=== PATIENT | male | born 1945 | race Caucasian/White ===

== ENCOUNTER 2016-12-09 10:36 | Inpatient (IN) | payer OTHER ==
[~2016-12-09] VITALS: Ht 175.3 cm; Wt 107.5 kg
[2016-12-09 12:13] LABS: HEMATOCRIT 46.9 % (38.0-50.0); MCH 31.5 PG (29.0-34.0); MCHC 33.7 G/DL (30.0-36.0); MCV 93.6 FL (86-99); MEAN PLAT.VOLUME 11.8 uM^3 (9.0-12.4); PLATELET COUNT 213 K/uL (156-360); RBC DIS.WIDTH-CV 12.7 % (11.8-14.6); RBC DIS.WIDTH-SD 43.9 % (39-53); RED BLOOD COUNT 5.01 M/uL (4.00-5.50)
[2016-12-09 12:22] LABS: CHLORIDE 110 mEq/L (99-109); POTASSIUM 4.5 mEq/L (3.7-5.4); SODIUM 144 mEq/L (136-147)
[2016-12-09 12:23] LABS: GLUCOSE 96 mg/dL (70-99)
[2016-12-09 12:25] LABS: ANION GAP 10 MEQ/L (2-14)
[2016-12-09 12:27] LABS: GFR ESTIMATE (CALCULATED) > 59 mL/min/
[2016-12-09 12:28] LABS: UREA NITROGEN (BUN) 19 mg/dL (9-23)
[2016-12-09] MEDS ORDERED: ADVAIR 250/501 DISK IH (14:57)
[2016-12-09] MEDS ORDERED: FINASTERIDE5 MG PO (14:58)
[2016-12-09] MEDS ORDERED: FOSINOPRIL SODI40 MG PO (14:58)
[2016-12-09] MEDS ORDERED: DICLOFENAC SODI75 MG PO (15:01)
[2016-12-09] MEDS ORDERED: TRAMADOL HCL50 MG PO (15:01)
[2016-12-09] MEDS ORDERED: LO-DOSE ASPIRIN81 M2 PO (15:02)
[2016-12-09] MEDS ORDERED: DAILY VALUE1 EACH PO (15:03)
[2016-12-09] MEDS ORDERED: PROAIR HFA8.5 GM IH (15:03)
[2016-12-09 17:58] VITALS: BP 168/84
[2016-12-09 20:00] VITALS: BP 173/93
[2016-12-09 23:45] VITALS: BP 185/88
[2016-12-10 03:43] VITALS: BP 177/97
[2016-12-10 05:59] LABS: HDL CHOLESTEROL 35 MG/DL (Desirable>=40); LDL CHOLESTEROL 107 mg/dL (Desirable<100); NON-HDL CHOLESTEROL 123 mg/dL (Desirable<160); SAMPLE HEMOLYSIS CHECK 1; SAMPLE ICTERIC CHECK 0; SAMPLE LIPEMIA CHECK 0; TOTAL CHOLESTEROL 158 mg/dL (Desirable<200); TRIGLYCERIDES 78 MG/DL (Normal: <150)
[2016-12-10 06:49] LABS: Estimated Average Glucose 111 mg/dL (70-123); HEMOGLOBIN A1c (GLYCOHEMOGLOB) 5.5 % HGB (Below 5.7)
[2016-12-10 08:11] VITALS: BP 184/86
[2016-12-10 10:45] LABS: ADD MIUA? YES; BILIRUBIN NEGATIVE; BLOOD MODERATE; COLOR YELLOW ((YELLOW)); GLUCOSE (STRIP) NEGATIVE; KETONES NEGATIVE; LEUKOCYTES NEGATIVE; NITRITE NEGATIVE; PROTEIN (STRIP) NEGATIVE; SPECIFIC GRAVITY 1.012 (1.000-1.030); UROBILINOGEN 0.2 MG/DL (0.2-1.0)
[2016-12-10 10:47] LABS: BACTERIA NONE SEEN /HPF; EPITHELIAL CELLS NONE SEEN /HPF; MUCUS TRACE /LPF; RED BLOOD CELLS 20-30 /HPF (0-5); UCUL ADDED? NO; WHITE BLOOD CELLS 0-5 /HPF (0-5)
[2016-12-10 11:58] VITALS: BP 154/88
[2016-12-10 15:53] VITALS: BP 178/82
[2016-12-10 19:45] VITALS: BP 150/82; BP 185/93
[2016-12-11 00:16] VITALS: BP 148/80
[2016-12-11 03:54] VITALS: BP 142/74
[2016-12-11 07:52] VITALS: BP 130/78
[2016-12-11 11:24] VITALS: BP 160/80
[2016-12-11 15:50] VITALS: BP 150/80
[2016-12-11 18:50] LABS: HEMATOCRIT 46.4 % (38.0-50.0); MCV 94.5 FL (86-99)
[2016-12-11 20:30] LABS: ADD MIUA? NO; BILIRUBIN NEGATIVE; BLOOD NEGATIVE; COLOR YELLOW ((YELLOW)); GLUCOSE (STRIP) NEGATIVE; KETONES NEGATIVE; LEUKOCYTES NEGATIVE; NITRITE NEGATIVE; PROTEIN (STRIP) NEGATIVE; SPECIFIC GRAVITY 1.019 (1.000-1.030); UROBILINOGEN 0.2 MG/DL (0.2-1.0)
[2016-12-12 00:03] VITALS: BP 148/68
[2016-12-12 07:28] LABS: HEMATOCRIT 44.3 % (38.0-50.0); MCH 31.5 PG (29.0-34.0); MCHC 33.6 G/DL (30.0-36.0); MCV 93.7 FL (86-99); MEAN PLAT.VOLUME 11.8 uM^3 (9.0-12.4); PLATELET COUNT 223 K/uL (156-360); RBC DIS.WIDTH-CV 12.5 % (11.8-14.6); RBC DIS.WIDTH-SD 43.2 % (39-53); RED BLOOD COUNT 4.73 M/uL (4.00-5.50); WHITE BLOOD COUNT 7.9 K/uL (4.1-10.2)
[2016-12-12 07:50] VITALS: BP 132/78
[2016-12-12 07:51] LABS: ANION GAP 8 MEQ/L (2-14); CHLORIDE 107 MEQ/L (99-109); GFR ESTIMATE (CALCULATED) > 59 mL/min/; GLUCOSE 92 mg/dL (70-99); SAMPLE HEMOLYSIS CHECK 0; SAMPLE ICTERIC CHECK 0; SAMPLE LIPEMIA CHECK 0; SODIUM 141 MEQ/L (136-147); UREA NITROGEN (BUN) 18 mg/dL (9-23)
[2016-12-12 16:09] VITALS: BP 140/82
[2016-12-12 23:29] VITALS: BP 137/74
[2016-12-13 05:26] LABS: HEMATOCRIT 45.9 % (38.0-50.0); MCH 31.3 PG (29.0-34.0); MCHC 33.8 G/DL (30.0-36.0); MCV 92.7 FL (86-99); MEAN PLAT.VOLUME 11.7 uM^3 (9.0-12.4); PLATELET COUNT 209 K/uL (156-360); RBC DIS.WIDTH-CV 12.3 % (11.8-14.6); RBC DIS.WIDTH-SD 42.3 % (39-53); RED BLOOD COUNT 4.95 M/uL (4.00-5.50); WHITE BLOOD COUNT 8.3 K/uL (4.1-10.2)
[2016-12-13 08:05] VITALS: BP 140/82
[2016-12-13 15:52] VITALS: BP 124/78
[2016-12-13 18:31] LABS: INTERNAL CONTROL VALID? YES
[2016-12-14 00:08] VITALS: BP 136/71
[2016-12-14 06:45] LABS: HEMATOCRIT 46.3 % (38.0-50.0); MCH 31.6 PG (29.0-34.0); MCHC 33.5 G/DL (30.0-36.0); MCV 94.3 FL (86-99); PLATELET COUNT 221 K/uL (156-360); RBC DIS.WIDTH-CV 12.4 % (11.8-14.6); RBC DIS.WIDTH-SD 42.9 % (39-53); RED BLOOD COUNT 4.91 M/uL (4.00-5.50); WHITE BLOOD COUNT 9.1 K/uL (4.1-10.2)
[2016-12-14 08:05] VITALS: BP 150/82
[2016-12-14] MEDS ORDERED: PRAVASTATIN SOD40 MG PO (11:27)
[2016-12-14 14:13] VITALS: BP 145/90
[2016-12-14] MEDS ORDERED: LOVENOX40 MG/0.4 PO (15:46)
[2016-12-14] MEDS ORDERED: PEPCID20 MG PO (16:03)
[2016-12-14] MEDS ORDERED: TEARS NATURALE30 ML RIGHT EYE (16:06)
== END 2016-12-14 15:05 | DRG 65 ==
LOC: EME 10:36 → EDOF 13:58 → 5SOUTH 16:02 → EDOF 16:08 → 5SOUTH 17:42
PROVIDERS: Nurse Practitioner Adult Health; Physician Assistant Medical; Specialist
PROC: B246ZZ4 Ultrasonography of Right and Left Heart, Transesophageal (ICD-10-PCS; principal; 2016-12-14)
DX: I63.40 Cerebral infarction due to embolism of unspecified cerebral artery (principal); J44.9 Chronic obstructive pulmonary disease, unspecified; K92.1 Melena; G81.91 Hemiplegia, unspecified affecting right dominant side; E78.5 Hyperlipidemia, unspecified; E83.119 Hemochromatosis, unspecified; H10.9 Unspecified conjunctivitis; H81.09 Meniere's disease, unspecified ear; I10 Essential (primary) hypertension; I47.1 Supraventricular tachycardia; R04.0 Epistaxis; Z86.711 Personal history of pulmonary embolism; Z87.891 Personal history of nicotine dependence; R31.9 Hematuria, unspecified; R26.9 Unspecified abnormalities of gait and mobility; R27.0 Ataxia, unspecified; R20.2 Paresthesia of skin; H53.8 Other visual disturbances; R30.0 Dysuria; R47.81 Slurred speech; I65.29 Occlusion and stenosis of unspecified carotid artery; R91.8 Other nonspecific abnormal finding of lung field; Z86.73 Personal history of transient ischemic attack (TIA), and cerebral infarction without residual deficits; Z79.82 Long term (current) use of aspirin
CPT/HCPCS: 70450; 70551; 71020; 71260; 80048; 80061; 81003; 82272; 83036; 85014; 85018; 85027; 92507 GN; 92523 GN; 93005; 93306; 93312; 93880; 99281; 99285; J1650; S0028

== ENCOUNTER 2016-12-14 10:36 | Inpatient (IN) | payer OTHER ==
[~2016-12-14] VITALS: Ht 185.4 cm; Wt 107.5 kg
[~2016-12-14 10:36] MED LIST: ADVAIR 250/501 DISK IH; DAILY VALUE1 EACH PO; DICLOFENAC SODI75 MG PO; FINASTERIDE5 MG PO; FOSINOPRIL SODI40 MG PO; LO-DOSE ASPIRIN81 M2 PO; PROAIR HFA8.5 GM IH; TRAMADOL HCL50 MG PO
[2016-12-14] MEDS ORDERED: PRAVASTATIN SOD40 MG PO (11:27)
[2016-12-14 15:41] VITALS: BP 170/96
[2016-12-14] MEDS ORDERED: LOVENOX40 MG/0.4 PO (15:46)
[2016-12-14] MEDS ORDERED: PEPCID20 MG PO (16:03)
[2016-12-14] MEDS ORDERED: TEARS NATURALE30 ML RIGHT EYE (16:06)
[2016-12-14 16:36] VITALS: BP 150/82
[2016-12-15 00:14] VITALS: BP 131/72
[2016-12-15 05:04] VITALS: BP 136/77
[2016-12-15 06:48] LABS: HEMATOCRIT 44.1 % (38.0-50.0); MCH 32.5 PG (29.0-34.0); MCHC 34.5 G/DL (30.0-36.0); MCV 94.4 FL (86-99); MEAN PLAT.VOLUME 11.9 uM^3 (9.0-12.4); PLATELET COUNT 204 K/uL (156-360); RBC DIS.WIDTH-CV 12.5 % (11.8-14.6); RBC DIS.WIDTH-SD 43.2 % (39-53); RED BLOOD COUNT 4.67 M/uL (4.00-5.50); WHITE BLOOD COUNT 8.5 K/uL (4.1-10.2)
[2016-12-15 07:22] LABS: ALKALINE PHOSPHATASE 41 IU/L (3-129); ANION GAP 9 MEQ/L (2-14); CHLORIDE 108 MEQ/L (99-109); GFR ESTIMATE (CALCULATED) > 59 mL/min/; GLUCOSE 89 mg/dL (70-99); POTASSIUM 4.1 MEQ/L (3.7-5.4); SAMPLE HEMOLYSIS CHECK 0; SAMPLE ICTERIC CHECK 0; SAMPLE LIPEMIA CHECK 0; SODIUM 140 MEQ/L (136-147); TOTAL BILIRUBIN 0.8 MG/DL (0.0-1.0); UREA NITROGEN (BUN) 19 mg/dL (9-23)
[2016-12-15 09:17] LABS: POINT-OF-CARE METER ID UU13113720; POINT-OF-CARE USER ID ENVGAF
[2016-12-15 11:56] VITALS: BP 157/74
[2016-12-15 12:28] VITALS: BP 143/73
[2016-12-15 15:35] VITALS: BP 166/77
[2016-12-16 04:03] VITALS: BP 160/72
[2016-12-16 15:00] VITALS: BP 146/74
[2016-12-17 04:26] VITALS: BP 154/90
[2016-12-17 06:19] VITALS: BP 172/88
[2016-12-17 15:09] VITALS: BP 157/76
[2016-12-17 19:14] LABS: C DIFF TOXIN NEGATIVE (NEGATIVE)
[2016-12-17 19:18] LABS: PROBE CHECK PASS; SPECIMEN PROCESSING CONTROL PASS
[2016-12-18 05:45] VITALS: BP 175/92
[2016-12-18 14:52] VITALS: BP 135/60
[2016-12-19 04:35] VITALS: BP 146/82
[2016-12-19 15:02] VITALS: BP 146/67
[2016-12-20 05:42] VITALS: BP 124/62; BP 167/92
[2016-12-20 05:55] VITALS: BP 170/84
[2016-12-20 15:31] VITALS: BP 136/73
[2016-12-21 04:50] VITALS: BP 160/84
[2016-12-21 15:14] VITALS: BP 128/57
[2016-12-22 04:59] VITALS: BP 150/78
[2016-12-22 15:05] VITALS: BP 140/63
[2016-12-23 05:31] VITALS: BP 157/85
[2016-12-23 07:56] LABS: HEMATOCRIT 43.2 % (38.0-50.0); MCV 93.9 FL (86-99); MEAN PLAT.VOLUME 11.8 uM^3 (9.0-12.4); PLATELET COUNT 210 K/uL (156-360); RBC DIS.WIDTH-CV 12.2 % (11.8-14.6); RBC DIS.WIDTH-SD 42.3 % (39-53); WHITE BLOOD COUNT 7.7 K/uL (4.1-10.2)
[2016-12-23 08:21] LABS: ALKALINE PHOSPHATASE 41 IU/L (3-129); ANION GAP 6 MEQ/L (2-14); CHLORIDE 109 MEQ/L (99-109); GFR ESTIMATE (CALCULATED) > 59 mL/min/; GLUCOSE 102 mg/dL (70-99); POTASSIUM 4.2 MEQ/L (3.7-5.4); SAMPLE HEMOLYSIS CHECK 0; SAMPLE ICTERIC CHECK 0; SAMPLE LIPEMIA CHECK 0; SODIUM 140 MEQ/L (136-147); TOTAL BILIRUBIN 0.5 MG/DL (0.0-1.0); UREA NITROGEN (BUN) 22 mg/dL (9-23)
[2016-12-23 16:15] VITALS: BP 132/63
[2016-12-23] MEDS ORDERED: SPIRIVA RESPIMAT4 GM IH (19:17)
[2016-12-23] MEDS ORDERED: ADVAIR 250/501 DISK IH (19:17)
[2016-12-23] MEDS ORDERED: LO-DOSE ASPIRIN81 M2 PO (19:17)
[2016-12-23] MEDS ORDERED: PRAVASTATIN SOD40 MG PO (19:17)
[2016-12-23] MEDS ORDERED: PROAIR HFA8.5 GM IH (19:17)
[2016-12-23] MEDS ORDERED: FINASTERIDE5 MG PO (19:17)
[2016-12-23] MEDS ORDERED: FOSINOPRIL SODI40 MG PO (19:17)
[2016-12-24 05:06] VITALS: BP 158/84
== END 2016-12-24 14:04 | DRG 41 ==
LOC: 3WEST 10:36
PROVIDERS: Physical Medicine & Rehabilitation Pain Medicine
PROC: F07M0ZZ Range of Motion and Joint Mobility Treatment of Musculoskeletal System - Whole Body (ICD-10-PCS; principal; 2016-12-14)
PROC: 0JH602Z Insertion of Monitoring Device into Chest Subcutaneous Tissue and Fascia, Open Approach (ICD-10-PCS; 2016-12-15)
DX: I69.351 Hemiplegia and hemiparesis following cerebral infarction affecting right dominant side (principal); I27.2 Other secondary pulmonary hypertension; J44.9 Chronic obstructive pulmonary disease, unspecified; R91.8 Other nonspecific abnormal finding of lung field; I70.0 Atherosclerosis of aorta; I10 Essential (primary) hypertension; R04.0 Epistaxis; E83.119 Hemochromatosis, unspecified; H81.09 Meniere's disease, unspecified ear; H91.90 Unspecified hearing loss, unspecified ear; K62.5 Hemorrhage of anus and rectum; Z68.31 Body mass index [BMI] 31.0-31.9, adult; Z86.711 Personal history of pulmonary embolism; Z87.891 Personal history of nicotine dependence
CPT/HCPCS: 80053; 82948; 85027; 87177; 87206; 87493; 87506; 94640; 94640 76; 97110 GO; 97530 GP; 99202; C1764; J1650

== ENCOUNTER 2017-01-07 19:17 | Emergency (ER) | payer OTHER ==
[~2017-01-07] VITALS: Ht 185.4 cm; Wt 109.1 kg
[~2017-01-07 19:17] MED LIST changes: +LOVENOX40 MG/0.4 PO; +PEPCID20 MG PO; +PRAVASTATIN SOD40 MG PO; +SPIRIVA RESPIMAT4 GM IH; +TEARS NATURALE30 ML RIGHT EYE
[2017-01-07 21:17] LABS: HEMATOCRIT 46.1 % (38.0-50.0); MCH 31.2 PG (29.0-34.0); MCHC 33.6 G/DL (30.0-36.0); MCV 92.8 FL (86-99); MEAN PLAT.VOLUME 11.4 uM^3 (9.0-12.4); PLATELET COUNT 195 K/uL (156-360); RBC DIS.WIDTH-SD 41.2 % (39-53); RED BLOOD COUNT 4.97 M/uL (4.00-5.50); WHITE BLOOD COUNT 9.8 K/uL (4.1-10.2)
[2017-01-07 21:28] LABS: CHLORIDE 106 mEq/L (99-109); SODIUM 140 mEq/L (136-147)
[2017-01-07 21:29] LABS: GLUCOSE 89 mg/dL (70-99)
[2017-01-07 21:31] LABS: ANION GAP 13 MEQ/L (2-14)
[2017-01-07 21:33] LABS: GFR ESTIMATE (CALCULATED) > 59 mL/min/
[2017-01-07 21:34] LABS: UREA NITROGEN (BUN) 18 mg/dL (9-23)
[2017-01-07 22:22] LABS: TROP-I INTERPRETATION NEGATIVE; TROPONIN-I < 0.01 ng/mL (0.0-0.30)
[2017-01-07 23:49] VITALS: BP 167/80
[2017-01-12] MEDS ORDERED: ASPIRIN325 MG PO (15:10)
== END 2017-01-07 23:50 | disposition home or self-care (01) ==
LOC: EME 19:17
PROVIDERS: Emergency Medicine
DX: S50.812A Abrasion of left forearm, initial encounter (principal); W01.0XXA Fall on same level from slipping, tripping and stumbling without subsequent striking against object, initial encounter; Z86.73 Personal history of transient ischemic attack (TIA), and cerebral infarction without residual deficits; J44.9 Chronic obstructive pulmonary disease, unspecified; E78.5 Hyperlipidemia, unspecified; I10 Essential (primary) hypertension; Z87.891 Personal history of nicotine dependence
CPT/HCPCS: 70450; 71020; 80048; 84484; 85027; 93005; 99281; 99284

== ENCOUNTER 2017-07-30 13:04 | Emergency (ER) | payer OTHER ==
[~2017-07-30] VITALS: Ht 185.4 cm; Wt 95.9 kg
[~2017-07-30 13:04] MED LIST changes: +ASPIRIN325 MG PO
[2017-07-30 15:29] LABS: APPEARANCE BLOODY ((CLEAR)); BILIRUBIN LARGE; BLOOD LARGE; COLOR BLOODY ((YELLOW)); GLUCOSE (STRIP) NEGATIVE; PROTEIN (STRIP) >=2000; SPECIFIC GRAVITY 1.021 (1.000-1.030)
[2017-07-30 15:33] LABS: ICTOTEST NEGATIVE
[2017-07-30 15:41] LABS: HEMATOCRIT 40.1 % (38.0-50.0); HEMOGLOBIN 13.4 G/DL (12.5-16.6); MCH 30.2 PG (29.0-34.0); MCHC 33.4 G/DL (30.0-36.0); MCV 90.5 FL (86-99); PLATELET COUNT 315 K/uL (156-360); RBC DIS.WIDTH-CV 13.1 % (11.8-14.6); RBC DIS.WIDTH-SD 43.4 % (39-53); RED BLOOD COUNT 4.43 M/uL (4.00-5.50); WHITE BLOOD COUNT 9.4 K/uL (4.1-10.2)
[2017-07-30 15:48] LABS: ALBUMIN 3.3 g/dL (3.2-4.8)
[2017-07-30 15:49] LABS: CHLORIDE 107 mEq/L (99-109); SODIUM 141 mEq/L (136-147)
[2017-07-30 15:50] LABS: PTT 36.1 SEC (25-37)
[2017-07-30 15:51] LABS: GLUCOSE 101 mg/dL (70-99); TOTAL PROTEIN 7.1 g/dL (6.4-8.3)
[2017-07-30 15:53] LABS: TOTAL BILIRUBIN 0.6 mg/dL (0.0-1.0)
[2017-07-30 15:54] LABS: RED BLOOD CELLS TNTC /HPF (0-5); UCUL ADDED? YES; WHITE BLOOD CELLS TNTC /HPF (0-5)
[2017-07-30 15:54] LABS: ALKALINE PHOSPHATASE 44 IU/L (3-129)
[2017-07-30 15:55] LABS: CREATININE 1.3 mg/dL (0.6-1.3); GFR ESTIMATE (CALCULATED) 57 mL/min/ (58.99-99999)
[2017-07-30 15:56] LABS: AST (GOT) 20 IU/L (2-34); UREA NITROGEN (BUN) 33 mg/dL (9-23)
[2017-07-30 15:57] LABS: ALT (GPT) 16 IU/L (3-49)
[2017-07-30] MEDS ORDERED: PROSCAR5 MG PO (16:08)
[2017-07-30] MEDS ORDERED: XARELTO20 MG PO (16:09)
[2017-07-30] MEDS ORDERED: ULTRAM50 MG PO (16:10)
[2017-07-30] MEDS ORDERED: VITAMIN B122500 MCG PO (16:11)
[2017-07-30] MEDS ORDERED: ADVAIR 250/501 DISK IH (16:12)
[2017-07-30] MEDS ORDERED: VENTOLIN HFA18 GM IH ×2 (16:12→16:15)
[2017-07-30] MEDS ORDERED: SYMBICORT60 INHALAT IH (16:13)
[2017-07-30] MEDS ORDERED: KEFLEX500 MG PO (17:29)
[2017-07-30 17:50] VITALS: BP 127/64
== END 2017-07-30 17:58 | disposition home or self-care (01) ==
LOC: EME 13:04
PROVIDERS: Emergency Medicine
DX: N39.0 Urinary tract infection, site not specified (principal); R31.9 Hematuria, unspecified; J44.9 Chronic obstructive pulmonary disease, unspecified; I10 Essential (primary) hypertension; E78.5 Hyperlipidemia, unspecified; I48.91 Unspecified atrial fibrillation; Z79.01 Long term (current) use of anticoagulants; Z86.711 Personal history of pulmonary embolism; Z79.82 Long term (current) use of aspirin; Z87.891 Personal history of nicotine dependence
CPT/HCPCS: 80053; 81003; 85027; 85610; 85730; 87086; 99281; 99284; J0696; J7030

== ENCOUNTER 2017-09-02 09:56 | Inpatient (IN) | payer OTHER ==
[~2017-09-02] VITALS: Ht 185.4 cm; Wt 106.2 kg
[~2017-09-02 09:56] MED LIST changes: +B-121000 MC2 PO; +KEFLEX500 MG PO; +PROSCAR5 MG PO; +SYMBICORT60 INHALAT IH; +ULTRAM50 MG PO; +VENTOLIN HFA18 GM IH; +XARELTO20 MG PO
[2017-09-02 11:14] LABS: HEMATOCRIT 39.5 % (38.0-50.0); HEMOGLOBIN 13.1 G/DL (12.5-16.6); MCH 29.9 PG (29.0-34.0); MCHC 33.2 G/DL (30.0-36.0); MCV 90.2 FL (86-99); PLATELET COUNT 255 K/uL (156-360); RBC DIS.WIDTH-CV 13.4 % (11.8-14.6); RBC DIS.WIDTH-SD 44.3 % (39-53); RED BLOOD COUNT 4.38 M/uL (4.00-5.50); WHITE BLOOD COUNT 7.3 K/uL (4.1-10.2)
[2017-09-02 11:22] LABS: CHLORIDE 109 mEq/L (99-109); POTASSIUM 4.4 mEq/L (3.7-5.4); SODIUM 136 mEq/L (136-147)
[2017-09-02 11:24] LABS: GLUCOSE 92 mg/dL (70-99)
[2017-09-02 11:28] LABS: CREATININE 1.5 mg/dL (0.6-1.3); GFR ESTIMATE (CALCULATED) 49 mL/min/ (58.99-99999)
[2017-09-02 11:29] LABS: UREA NITROGEN (BUN) 23 mg/dL (9-23)
[2017-09-02 11:37] LABS: TROP-I INTERPRETATION NEGATIVE; TROPONIN-I 0.01 ng/mL (0.0-0.30)
[2017-09-02 12:42] LABS: APPEARANCE CLOUDY ((CLEAR)); BILIRUBIN NEGATIVE; BLOOD LARGE; COLOR AMBER ((YELLOW)); GLUCOSE (STRIP) NEGATIVE; KETONES NEGATIVE; LEUKOCYTES LARGE; NITRITE NEGATIVE; PROTEIN (STRIP) 100; UROBILINOGEN 0.2 MG/DL (0.2-1.0)
[2017-09-02 13:01] LABS: RED BLOOD CELLS TNTC /HPF (0-5)
[2017-09-02 13:02] LABS: UCUL ADDED? YES
[2017-09-02] MEDS ORDERED: PRAVACHOL40 MG PO (14:02)
[2017-09-02] MEDS ORDERED: BACTRIM,SEPT1 TABLET PO (14:05)
[2017-09-02] MEDS ORDERED: FLOMAX0.4 MG PO (14:06)
[2017-09-02 20:18] VITALS: BP 155/55
[2017-09-03] VITALS (8 sets, daily range): BP systolic 102–178; BP diastolic 54–103
[2017-09-03 06:05] LABS: HEMATOCRIT 35.9 % (38.0-50.0); HEMOGLOBIN 11.9 G/DL (12.5-16.6); MCH 29.3 PG (29.0-34.0); MCHC 33.1 G/DL (30.0-36.0); MCV 88.4 FL (86-99); PLATELET COUNT 231 K/uL (156-360); RBC DIS.WIDTH-CV 13.5 % (11.8-14.6); RED BLOOD COUNT 4.06 M/uL (4.00-5.50); WHITE BLOOD COUNT 7.8 K/uL (4.1-10.2)
[2017-09-03 07:49] LABS: CHLORIDE 110 MEQ/L (99-109); GLUCOSE 97 mg/dL (70-99); POTASSIUM 4.3 MEQ/L (3.7-5.4); SODIUM 136 MEQ/L (136-147); UREA NITROGEN (BUN) 18 mg/dL (9-23)
[2017-09-03 07:50] LABS: GFR ESTIMATE (CALCULATED) > 59 mL/min/ (58.99-99999)
[2017-09-04 03:56] VITALS: BP 155/70
[2017-09-04 05:31] LABS: HEMOGLOBIN 11.7 G/DL (12.5-16.6); MCH 29.3 PG (29.0-34.0); MCHC 32.5 G/DL (30.0-36.0); MCV 90.2 FL (86-99); PLATELET COUNT 210 K/uL (156-360); RBC DIS.WIDTH-CV 13.6 % (11.8-14.6); RBC DIS.WIDTH-SD 44.4 % (39-53); RED BLOOD COUNT 3.99 M/uL (4.00-5.50)
[2017-09-04 05:59] LABS: CHLORIDE 110 MEQ/L (99-109); CREATININE 1.2 MG/DL (0.6-1.3); GFR ESTIMATE (CALCULATED) > 59 mL/min/ (58.99-99999); GLUCOSE 101 mg/dL (70-99); POTASSIUM 4.2 MEQ/L (3.7-5.4); SODIUM 139 MEQ/L (136-147); UREA NITROGEN (BUN) 16 mg/dL (9-23)
[2017-09-04 07:19] VITALS: BP 172/75
[2017-09-04 19:18] VITALS: BP 144/74
[2017-09-04 23:09] VITALS: BP 135/73
[2017-09-05 03:33] VITALS: BP 150/100
[2017-09-05 07:18] LABS: CHLORIDE 112 MEQ/L (99-109); CREATININE 0.9 MG/DL (0.6-1.3); GFR ESTIMATE (CALCULATED) > 59 mL/min/ (58.99-99999); GLUCOSE 84 mg/dL (70-99); POTASSIUM 4.2 MEQ/L (3.7-5.4); SODIUM 139 MEQ/L (136-147); UREA NITROGEN (BUN) 12 mg/dL (9-23)
[2017-09-05 07:26] VITALS: BP 130/77
[2017-09-05 11:31] VITALS: BP 137/71
[2017-09-05 15:31] LABS: INTER. NORMALIZED RATIO 1.2
[2017-09-05 15:34] LABS: PTT 29.4 SEC (25-37)
[2017-09-05 15:43] VITALS: BP 138/70
[2017-09-06] VITALS (9 sets, daily range): BP systolic 135–171; BP diastolic 62–81
[2017-09-06 07:11] LABS: HEMATOCRIT 32.9 % (38.0-50.0); HEMOGLOBIN 10.7 G/DL (12.5-16.6); MCH 28.9 PG (29.0-34.0); MCHC 32.5 G/DL (30.0-36.0); MCV 88.9 FL (86-99); PLATELET COUNT 200 K/uL (156-360); RBC DIS.WIDTH-CV 13.5 % (11.8-14.6); RBC DIS.WIDTH-SD 44.3 % (39-53); WHITE BLOOD COUNT 10.9 K/uL (4.1-10.2)
[2017-09-06 07:49] LABS: CHLORIDE 110 MEQ/L (99-109); CREATININE 0.8 MG/DL (0.6-1.3); GFR ESTIMATE (CALCULATED) > 59 mL/min/ (58.99-99999); MAGNESIUM 1.8 mg/dl (1.3-2.7); PHOSPHORUS 3.5 mg/dL (2.5-4.9); POTASSIUM 4.4 MEQ/L (3.7-5.4); SODIUM 136 MEQ/L (136-147); UREA NITROGEN (BUN) 10 mg/dL (9-23)
[2017-09-06 07:50] LABS: GLUCOSE 155 mg/dL (70-99)
[2017-09-07] VITALS (7 sets, daily range): BP systolic 160–193; BP diastolic 73–88
[2017-09-07 07:56] LABS: HEMOGLOBIN 10.1 G/DL (12.5-16.6); MCH 29.7 PG (29.0-34.0); MCHC 32.6 G/DL (30.0-36.0); MCV 91.2 FL (86-99); PLATELET COUNT 190 K/uL (156-360); RBC DIS.WIDTH-CV 13.8 % (11.8-14.6); RBC DIS.WIDTH-SD 46.4 % (39-53); WHITE BLOOD COUNT 7.6 K/uL (4.1-10.2)
[2017-09-07 08:24] LABS: CHLORIDE 112 MEQ/L (99-109); CREATININE 0.9 MG/DL (0.6-1.3); GFR ESTIMATE (CALCULATED) > 59 mL/min/ (58.99-99999); MAGNESIUM 1.7 mg/dl (1.3-2.7); PHOSPHORUS 2.5 mg/dL (2.5-4.9); POTASSIUM 4.4 MEQ/L (3.7-5.4); SODIUM 141 MEQ/L (136-147); UREA NITROGEN (BUN) 11 mg/dL (9-23)
[2017-09-07 08:26] LABS: GLUCOSE 97 mg/dL (70-99)
[2017-09-08 04:07] VITALS: BP 195/91
[2017-09-08 05:32] LABS: HEMATOCRIT 31.5 % (38.0-50.0); HEMOGLOBIN 10.4 G/DL (12.5-16.6); MCH 29.3 PG (29.0-34.0); MCV 88.7 FL (86-99); PLATELET COUNT 189 K/uL (156-360); RBC DIS.WIDTH-CV 13.6 % (11.8-14.6); RBC DIS.WIDTH-SD 43.8 % (39-53); RED BLOOD COUNT 3.55 M/uL (4.00-5.50); WHITE BLOOD COUNT 6.6 K/uL (4.1-10.2)
[2017-09-08 05:58] LABS: CHLORIDE 110 MEQ/L (99-109); CREATININE 0.8 MG/DL (0.6-1.3); GFR ESTIMATE (CALCULATED) > 59 mL/min/ (58.99-99999); GLUCOSE 98 mg/dL (70-99); MAGNESIUM 1.5 mg/dl (1.3-2.7); PHOSPHORUS 2.5 mg/dL (2.5-4.9); POTASSIUM 3.6 MEQ/L (3.7-5.4); SODIUM 138 MEQ/L (136-147); UREA NITROGEN (BUN) 6 mg/dL (9-23)
[2017-09-08 08:09] VITALS: BP 154/75
[2017-09-08 11:40] VITALS: BP 124/68
[2017-09-08 16:36] VITALS: BP 180/76
[2017-09-08 20:16] VITALS: BP 191/84
[2017-09-08 22:12] VITALS: BP 197/91
[2017-09-09] VITALS (11 sets, daily range): BP systolic 88–191; BP diastolic 62–90
[2017-09-09 06:18] LABS: HEMOGLOBIN 10.4 G/DL (12.5-16.6); MCH 28.7 PG (29.0-34.0); MCHC 32.5 G/DL (30.0-36.0); MCV 88.4 FL (86-99); PLATELET COUNT 218 K/uL (156-360); RBC DIS.WIDTH-CV 13.6 % (11.8-14.6); RBC DIS.WIDTH-SD 44.4 % (39-53); RED BLOOD COUNT 3.62 M/uL (4.00-5.50); WHITE BLOOD COUNT 6.3 K/uL (4.1-10.2)
[2017-09-09 06:46] LABS: CHLORIDE 111 MEQ/L (99-109); CREATININE 0.8 MG/DL (0.6-1.3); GFR ESTIMATE (CALCULATED) > 59 mL/min/ (58.99-99999); GLUCOSE 108 mg/dL (70-99); PHOSPHORUS 3.1 mg/dL (2.5-4.9); POTASSIUM 3.6 MEQ/L (3.7-5.4); SODIUM 139 MEQ/L (136-147); UREA NITROGEN (BUN) 5 mg/dL (9-23)
[2017-09-09 06:47] LABS: MAGNESIUM 1.8 mg/dl (1.3-2.7)
[2017-09-10 03:43] VITALS: BP 160/88
[2017-09-10 06:22] LABS: HEMATOCRIT 29.6 % (38.0-50.0); HEMOGLOBIN 9.5 G/DL (12.5-16.6); MCH 28.8 PG (29.0-34.0); MCHC 32.1 G/DL (30.0-36.0); MCV 89.7 FL (86-99); PLATELET COUNT 227 K/uL (156-360); RBC DIS.WIDTH-SD 45.7 % (39-53); WHITE BLOOD COUNT 6.4 K/uL (4.1-10.2)
[2017-09-10 06:48] LABS: CHLORIDE 114 MEQ/L (99-109); GFR ESTIMATE (CALCULATED) > 59 mL/min/ (58.99-99999); GLUCOSE 99 mg/dL (70-99); SODIUM 140 MEQ/L (136-147); UREA NITROGEN (BUN) 10 mg/dL (9-23)
[2017-09-10 06:50] LABS: POTASSIUM 4.4 MEQ/L (3.7-5.4)
[2017-09-10 07:40] VITALS: BP 158/96
[2017-09-10 12:00] VITALS: BP 178/96
[2017-09-10 12:42] LABS: C DIFF TOXIN NEGATIVE (NEGATIVE)
[2017-09-10 17:09] VITALS: BP 178/92
[2017-09-10 17:49] VITALS: BP 162/82
[2017-09-10 20:18] VITALS: BP 186/88
[2017-09-11] VITALS (10 sets, daily range): BP systolic 150–190; BP diastolic 72–91
[2017-09-11 06:04] LABS: HEMATOCRIT 27.6 % (38.0-50.0); MCH 29.8 PG (29.0-34.0); MCHC 32.6 G/DL (30.0-36.0); MCV 91.4 FL (86-99); PLATELET COUNT 209 K/uL (156-360); RBC DIS.WIDTH-CV 14.4 % (11.8-14.6); RBC DIS.WIDTH-SD 47.2 % (39-53); RED BLOOD COUNT 3.02 M/uL (4.00-5.50); WHITE BLOOD COUNT 8.1 K/uL (4.1-10.2)
[2017-09-11 06:37] LABS: CHLORIDE 110 MEQ/L (99-109); CREATININE 0.8 MG/DL (0.6-1.3); GFR ESTIMATE (CALCULATED) > 59 mL/min/ (58.99-99999); GLUCOSE 88 mg/dL (70-99); POTASSIUM 4.2 MEQ/L (3.7-5.4); SODIUM 136 MEQ/L (136-147); UREA NITROGEN (BUN) 17 mg/dL (9-23)
[2017-09-12 04:07] VITALS: BP 158/86
[2017-09-12 05:54] LABS: HEMATOCRIT 27.1 % (38.0-50.0); HEMOGLOBIN 8.8 G/DL (12.5-16.6); MCH 29.9 PG (29.0-34.0); MCHC 32.5 G/DL (30.0-36.0); MCV 92.2 FL (86-99); PLATELET COUNT 223 K/uL (156-360); RBC DIS.WIDTH-CV 14.8 % (11.8-14.6); RBC DIS.WIDTH-SD 48.3 % (39-53); RED BLOOD COUNT 2.94 M/uL (4.00-5.50); WHITE BLOOD COUNT 7.7 K/uL (4.1-10.2)
[2017-09-12 06:23] LABS: CHLORIDE 111 MEQ/L (99-109); CREATININE 0.9 MG/DL (0.6-1.3); GFR ESTIMATE (CALCULATED) > 59 mL/min/ (58.99-99999); GLUCOSE 87 mg/dL (70-99); POTASSIUM 4.4 MEQ/L (3.7-5.4); SODIUM 139 MEQ/L (136-147); UREA NITROGEN (BUN) 20 mg/dL (9-23)
[2017-09-12 08:43] VITALS: BP 183/90
[2017-09-12 10:37] VITALS: BP 150/60
[2017-09-12] MEDS ORDERED: LOPRESSOR50 MG PO (11:02)
[2017-09-12 11:55] VITALS: BP 138/72
[2017-09-12 15:54] VITALS: BP 174/74
[2017-09-12 20:21] VITALS: BP 178/72
[2017-09-13 00:01] VITALS: BP 160/71
[2017-09-13 04:15] VITALS: BP 163/68
[2017-09-13 08:12] VITALS: BP 113/66
[2017-09-13 11:39] VITALS: BP 133/62
== END 2017-09-13 13:22 | DRG 981 ==
LOC: EME 09:56 → EDOF 14:37 → CANRESERV 14:41 → ENRESERV 14:41 → 5WEST 19:50 → 3EAST 09-03 08:15 → ENRESERV 09-05 21:11 → 3EAST 09-05 23:38
PROVIDERS: Emergency Medicine; Family Medicine; Hospitalist; Internal Medicine; Physician Assistant; Surgery; Thoracic Surgery (Cardiothoracic Vascular Surgery)
DX: N32.1 Vesicointestinal fistula (principal); K57.20 Diverticulitis of large intestine with perforation and abscess without bleeding; N17.9 Acute kidney failure, unspecified; G93.41 Metabolic encephalopathy; N39.0 Urinary tract infection, site not specified; B96.20 Unspecified Escherichia coli [E. coli] as the cause of diseases classified elsewhere; E87.5 Hyperkalemia; R31.0 Gross hematuria; N13.30 Unspecified hydronephrosis; J44.9 Chronic obstructive pulmonary disease, unspecified; I10 Essential (primary) hypertension; N40.0 Benign prostatic hyperplasia without lower urinary tract symptoms; I48.91 Unspecified atrial fibrillation; E78.00 Pure hypercholesterolemia, unspecified; I48.0 Paroxysmal atrial fibrillation; E78.5 Hyperlipidemia, unspecified; E83.119 Hemochromatosis, unspecified; I87.8 Other specified disorders of veins; I27.20 Pulmonary hypertension, unspecified; E66.9 Obesity, unspecified; Z87.891 Personal history of nicotine dependence; Z86.73 Personal history of transient ischemic attack (TIA), and cerebral infarction without residual deficits; Z86.711 Personal history of pulmonary embolism; Z79.01 Long term (current) use of anticoagulants; Q62.5 Duplication of ureter; Z68.28 Body mass index [BMI] 28.0-28.9, adult; Z85.828 Personal history of other malignant neoplasm of skin
CPT/HCPCS: 36415; 70450; 71045; 71046; 74177; 80048; 81003; 82948; 83605; 83735; 83880; 84100; 84484; 85025; 85027; 85610; 85730; 86850; 86900; 86901; 86920; 87040; 87070; 87075; 87076; 87077; 87086; 87106; 87186; 87205; 87493; 88302; 88305; 88307; 93005; 94640; 94640 76; 97530 GO; 97530 GP; 99281; 99284; C1751; G0378; G8978 GP CJ; G8979 GP CH; G8987 GO CJ; G8988 CI; G8989 GO CH; J0131; J0360; J0696; J1100; J1160; J1170; J1644; J1650; J1885; J2001; J2405; J2543; J3475; J7030; J7050; J7120; S0030

== ENCOUNTER 2017-09-17 13:16 | Observation (INO) | payer OTHER ==
[~2017-09-17] VITALS: Ht 185.4 cm; Wt 89.6 kg
[~2017-09-17 13:16] MED LIST changes: +BACTRIM,SEPT1 TABLET PO; +FLOMAX0.4 MG PO; +LOPRESSOR50 MG PO; +PRAVACHOL40 MG PO
[2017-09-17 14:03] LABS: BASOPHIL (%) 0.4 % (0-1); EOSINOPHIL (%) 1.3 % (0-5); EOSINOPHIL COUNT 0.1 K/uL (0-0.3); HEMOGLOBIN 9.8 G/DL (12.5-16.6); IMMATURE GRANULOCYTE (%) 0.4 % (0.0-0.7); LYMPHOCYTE COUNT 2.1 K/uL (1.0-2.8); MCH 30.2 PG (29.0-34.0); MCHC 32.7 G/DL (30.0-36.0); MCV 92.6 FL (86-99); MONOCYTE (%) 6.6 % (3-12); MONOCYTE COUNT 0.5 K/uL (0-0.8); NEUTROPHIL (%) 62.3 % (45-76); NEUTROPHIL COUNT 4.5 K/uL (1.8-6.4); PLATELET COUNT 277 K/uL (156-360); RBC DIS.WIDTH-CV 16.1 % (11.8-14.6); RBC DIS.WIDTH-SD 54.1 % (39-53); RED BLOOD COUNT 3.24 M/uL (4.00-5.50); WHITE BLOOD COUNT 7.1 K/uL (4.1-10.2)
[2017-09-17 14:08] LABS: APPEARANCE TURBID ((CLEAR)); COLOR RED ((YELLOW)); LEUKOCYTES TRACE; NITRITE NEGATIVE; PH, URINE 6.5 (5-8); SPECIFIC GRAVITY 1.025 (1.000-1.030)
[2017-09-17 14:09] LABS: INTER. NORMALIZED RATIO 1.7
[2017-09-17 14:09] LABS: BILIRUBIN MODERATE; BLOOD LARGE; GLUCOSE (STRIP) NEGATIVE; KETONES NEGATIVE; PROTEIN (STRIP) 100; UROBILINOGEN 0.2 MG/DL (0.2-1.0)
[2017-09-17 14:12] LABS: ICTOTEST POSITIVE
[2017-09-17 14:13] LABS: RED BLOOD CELLS TNTC /HPF (0-5); UCUL ADDED? YES
[2017-09-17 14:13] LABS: CHLORIDE 110 mEq/L (99-109); POTASSIUM 4.3 mEq/L (3.7-5.4); SODIUM 142 mEq/L (136-147)
[2017-09-17 14:15] LABS: GLUCOSE 81 mg/dL (70-99)
[2017-09-17 14:19] LABS: CREATININE 0.7 mg/dL (0.6-1.3); GFR ESTIMATE (CALCULATED) > 59 mL/min/ (58.99-99999)
[2017-09-17 14:20] LABS: UREA NITROGEN (BUN) 22 mg/dL (9-23)
[2017-09-17] MEDS ORDERED: LOPRESSOR50 MG PO (15:15)
[2017-09-17] MEDS ORDERED: ZESTRIL40 MG PO (15:16)
[2017-09-17] MEDS ORDERED: CALCIUM 600 +1 EAC4 PO (15:19)
[2017-09-17] MEDS ORDERED: LIPITOR10 MG PO (15:21)
[2017-09-17] MEDS ORDERED: ACETAMINOPHEN325 M1 PO (15:22)
[2017-09-17] MEDS ORDERED: BISAC-EVAC10 MG PR (15:23)
[2017-09-17] MEDS ORDERED: MILK OF MAGN PO (15:23)
[2017-09-17] MEDS ORDERED: FLEET ENEMA-AD118 ML PR (15:24)
[2017-09-17 20:09] LABS: HEMOGLOBIN 9.7 G/DL (12.5-16.6)
[2017-09-17 20:20] VITALS: BP 133/68
[2017-09-17 23:38] VITALS: BP 119/57
[2017-09-18 05:30] VITALS: BP 145/97
[2017-09-18 05:52] LABS: HEMATOCRIT 28.9 % (38.0-50.0); HEMOGLOBIN 9.1 G/DL (12.5-16.6); MCH 29.2 PG (29.0-34.0); MCHC 31.5 G/DL (30.0-36.0); MCV 92.6 FL (86-99); PLATELET COUNT 272 K/uL (156-360); RBC DIS.WIDTH-CV 16.1 % (11.8-14.6); RBC DIS.WIDTH-SD 55.1 % (39-53); RED BLOOD COUNT 3.12 M/uL (4.00-5.50); WHITE BLOOD COUNT 6.9 K/uL (4.1-10.2)
[2017-09-18 05:56] LABS: INTER. NORMALIZED RATIO 1.3
[2017-09-18 06:16] LABS: CHLORIDE 110 MEQ/L (99-109); CREATININE 0.8 MG/DL (0.6-1.3); GFR ESTIMATE (CALCULATED) > 59 mL/min/ (58.99-99999); GLUCOSE 98 mg/dL (70-99); POTASSIUM 4.3 MEQ/L (3.7-5.4); SODIUM 141 MEQ/L (136-147); UREA NITROGEN (BUN) 21 mg/dL (9-23)
[2017-09-18 07:31] VITALS: BP 154/72
[2017-09-18 13:04] VITALS: BP 161/73
[2017-09-18 16:33] VITALS: BP 139/64
[2017-09-18 19:30] VITALS: BP 154/66
[2017-09-18 23:24] VITALS: BP 185/88
[2017-09-19 03:44] VITALS: BP 141/67
[2017-09-19 07:45] VITALS: BP 136/83; BP 140/65
[2017-09-19 08:23] LABS: MCH 29.9 PG (29.0-34.0); MCHC 32.3 G/DL (30.0-36.0); MCV 92.5 FL (86-99); PLATELET COUNT 278 K/uL (156-360); RBC DIS.WIDTH-CV 15.7 % (11.8-14.6); RBC DIS.WIDTH-SD 52.6 % (39-53); RED BLOOD COUNT 3.35 M/uL (4.00-5.50); WHITE BLOOD COUNT 8.3 K/uL (4.1-10.2)
[2017-09-19 08:55] LABS: CHLORIDE 109 MEQ/L (99-109); CREATININE 0.8 MG/DL (0.6-1.3); GFR ESTIMATE (CALCULATED) > 59 mL/min/ (58.99-99999); GLUCOSE 96 mg/dL (70-99); POTASSIUM 3.9 MEQ/L (3.7-5.4); SODIUM 139 MEQ/L (136-147); UREA NITROGEN (BUN) 18 mg/dL (9-23)
[2017-09-19 15:21] LABS: STOOL OCCULT BLD 1ST SPECIMEN POSITIVE
[2017-09-19 15:27] VITALS: BP 127/60
== END 2017-09-19 18:29 ==
LOC: EME 13:16 → 5WEST 16:04 → EDOF 16:04 → 5WEST 16:04 → EDOF 16:04 → ENRESERV 16:10 → 5WEST 19:53
PROVIDERS: Emergency Medicine; Hospitalist; Internal Medicine; Nurse Practitioner Adult Health
DX: R31.0 Gross hematuria (principal); K92.1 Melena; I48.0 Paroxysmal atrial fibrillation; Z86.73 Personal history of transient ischemic attack (TIA), and cerebral infarction without residual deficits; Z86.711 Personal history of pulmonary embolism; Z79.01 Long term (current) use of anticoagulants; Z87.440 Personal history of urinary (tract) infections; N40.0 Benign prostatic hyperplasia without lower urinary tract symptoms; N32.1 Vesicointestinal fistula; Z98.890 Other specified postprocedural states; Z87.19 Personal history of other diseases of the digestive system; Q62.5 Duplication of ureter; E78.5 Hyperlipidemia, unspecified; E83.119 Hemochromatosis, unspecified; H81.09 Meniere's disease, unspecified ear; I10 Essential (primary) hypertension; R49.0 Dysphonia; Z85.828 Personal history of other malignant neoplasm of skin; Z87.891 Personal history of nicotine dependence; D64.9 Anemia, unspecified; Z90.49 Acquired absence of other specified parts of digestive tract; J43.9 Emphysema, unspecified
CPT/HCPCS: 71045; 80048; 81003; 82272; 85014; 85018; 85025; 85027; 85610; 86850; 86900; 86901; 87086; 93005; 94640; 94640 76; 99202; 99281; 99285; G0378